=== PATIENT | male | born 1980 | race Caucasian/White ===

== ENCOUNTER 2019-11-01 05:32 | Emergency (ER) | payer OTHER ==
[~2019-11-01] VITALS: Ht 182.9 cm; Wt 85.4 kg
[2019-11-01 05:46] VITALS: BP 146/67
[2019-11-01] MEDS ORDERED: ALBU2.5V8 IH (05:52)
--- NOTE | 2019-11-01 07:08 | PHYS DOC ---
Past Medical History Past Medical History: Asthma Past Surgical History: No Surgical History Smoking Status: Never Smoker Alcohol Use: None General Adult EDM: Chief Complaint: THUMB HPI: HPI: Patient is a 39 year old male presented to ER today for evaluation of right thumb injury. Patient said he smashed his right thumb by his car door 2 days ago. He tried to use the paperclip to burn a hole through his nail to get the blood out but could not do it. So he came here for evaluation. Review of Systems: Review of Systems: Constitutional: Denies fever or chills. [] Eyes: Denies change in visual acuity. [] HENT: Denies nasal congestion or sore throat. [] Respiratory: Denies cough or shortness of breath. [] Cardiovascular: Denies chest pain or edema. [] GI: Denies abdominal pain, nausea, vomiting, bloody stools or diarrhea. [] : Denies dysuria. [] Musculoskeletal: Denies back pain. Positive for right thumb pain. Integument: Denies rash. [] Neurologic: Denies headache, focal weakness or sensory changes. [] Endocrine: Denies polyuria or polydipsia. [] Lymphatic: Denies swollen glands. [] Psychiatric: Denies depression or anxiety. [] Heart Score: Risk Factors: Risk Factors: DM, Current or recent (<one month) smoker, HTN, HLP, family history of CAD, obesity. Risk Scores: Score 0 - 3: 2.5% MACE over next 6 weeks - Discharge Home Score 4 - 6: 20.3% MACE over next 6 weeks - Admit for Clinical Observation Score 7 - 10: 72.7% MACE over next 6 weeks - Early Invasive Strategies Allergies: Allergies: Allergies Coded Allergies Type Severity Reaction Last Updated Verified No Known Drug Allergies 11/01/19 No Physical Exam: PE: Constitutional: Well developed, well nourished, no acute distress, non-toxic appearance. [] Skin: Warm, dry, no erythema, no rash. [] Extremities: right thumb is tender to palpation at the nailbed, blood accumulated under the nail, no open wound. Neurologic: Alert and oriented X 3, normal motor function, normal sensory function, no focal deficits noted. [] Psychologic: Affect normal, judgement normal, mood normal. [] Current Patient Data: Vital Signs: Vital Signs Date Time Temp Pulse Resp B/P (MAP) Pulse Ox O2 Delivery O2 Flow Rate FiO2 11/01/19 05:46 97.8 67 20 146/67 (93) 96 Room Air 97.8 EKG: EKG: [] Radiology/Procedures: Radiology/Procedures: [facility] [address] [place] [address] IMAGING REPORT Signed PATIENT: FERNANDA LANDRY ACCOUNT: [id number] : 1980 LOCATION: ER AGE: 39 SEX: M EXAM STATUS: REG ER ORD. PHYSICIAN: ROSE MARIE FENG Jr., DO REASON: right distal thumb pain. smashed in car x2 days ago PROCEDURE: FINGER(S) RIGHT INDICATION: Reason: right distal thumb pain. smashed in car x2 days ago / Spl. Instructions: / History: COMPARISON: None. IMPRESSION: Right first digit hand: 3 views obtained. There is some proximal migration of the proximal carpal row which has a chronic appearance with associated indentation at the distal radius and ulna. There is a small ossific density seen at the palmar aspect of the first distal interphalangeal joint but this appears well corticated therefore would favor that this is secondary to a ossicle rather than a fracture fragment unless there is point tenderness to the region. No evidence of dislocation. There is some swelling of the soft tissues. Linear high density structure is seen adjacent to the first metacarpophalangeal joint within the soft tissues and could be from a tiny calcification or object on the skin unless the patient has a laceration to suggest a tiny foreign body.. Electronically signed by: Jc Staley MD (11/01/2019 7:21 AM) [id number] DICTATED and SIGNED BY: JC STALEY MD DATE: 11/01/19 0721 Indication: subungal hematoma of right thumb Procedure: The patients hand was placed in the appropriate position. Anesthesia was not used. The nail was cleaned with alcohol swab and then trephinated with battery cauterizer until the pressurized blood was released and free flowing. The hole was then covered with gauze. The patients tetanus status is up to date. The patient tolerated the procedure well. Complications: NO Course & Med Decision Making: Course & Med Decision Making Pertinent Labs and Imaging studies reviewed. (See chart for details) [] Dragon Disclaimer: Dragon Disclaimer: This electronic medical record was generated, in whole or in part, using a voice recognition dictation system. Departure Departure Impression: Primary Impression: Subungual hematoma of right thumb Disposition: HOME, SELF-CARE Condition: IMPROVED Referrals: NO PCP (PCP) PLEASE FOLLOW UP WITH YOUR DOCTOR NEEDED Patient Instructions: Subungual Hematoma Justicifation of Admission Dx: Justifications for Admission: Justification of Admission Dx: N/A CHANTELLE SNYDER DO Nov 01, 2019 07:08
--- NOTE | 2019-11-01 07:24 | RAD ---
INDICATION: Reason: right distal thumb pain. smashed in car x2 days ago / Spl. Instructions: / History: COMPARISON: None. IMPRESSION: Right first digit hand: 3 views obtained. There is some proximal migration of the proximal carpal row which has a chronic appearance with associated indentation at the distal radius and ulna. There is a small ossific density seen at the palmar aspect of the first distal interphalangeal joint but this appears well corticated therefore would favor that this is secondary to a ossicle rather than a fracture fragment unless there is point tenderness to the region. No evidence of dislocation. There is some swelling of the soft tissues. Linear high density structure is seen adjacent to the first metacarpophalangeal joint within the soft tissues and could be from a tiny calcification or object on the skin unless the patient has a laceration to suggest a tiny foreign body.. Electronically signed by: Fausto Romo MD (11/01/2019 7:21 AM) [id number]
== END 2019-11-01 07:40 | disposition home or self-care (01) ==
LOC: ER 05:32
DX: S60.111A Contusion of right thumb with damage to nail, initial encounter (principal); J45.909 Unspecified asthma, uncomplicated; W23.0XXA Caught, crushed, jammed, or pinched between moving objects, initial encounter; Y93.89 Activity, other specified; Y92.89 Other specified places as the place of occurrence of the external cause; Y99.8 Other external cause status
CPT/HCPCS: 11740; 73140; 99284